=== PATIENT | male | born 1955 | race Asian ===

== ENCOUNTER → 2025-04-15 | Outpatient (CLI) | payer MEDICARE, MEDICAID, SELFPAY ==
--- NOTE | 2025-04-15 10:37 | XR_ITS ---
Examination: Retroperitoneal ultrasound, complete Technique: Multiple high resolution grayscale images of the retroperitoneum obtained, including kidneys and bladder. Exam date and time:April 15, 2025 1041 hours INDICATIONS: Elevated PSA and laboratory examination this month FINDINGS: Right kidney 10.3 cm cortex 1.7 cm 4 mm mid calculus Superior renal cyst 19 mm Left kidney 10.3 cm cortex 1.4 cm 5 mm lower pole calculus, lower pole cyst 18 mm Bilateral mild renal parenchymal scar formation No bladder mass or bladder calculi Bladder prevoid volume 165 cc postvoid volume 15 cc Prostatomegaly, 5.0 x 4.6 x 5.5 cm volume 66 cc, hypervascular in appearance with irregular margins IMPRESSION: Bilateral nonobstructing renal calculi Mild bilateral renal parenchymal scar mentioned Significant prostatomegaly, prostate hypervascular in appearance, recommend follow-up transrectal prostate sonography
== END | disposition home or self-care (01) ==
LOC: SDIM 10:27
PROVIDERS: PCP Nurse Practitioner Family; Referring Provider Nurse Practitioner Family; Visit Provider Nurse Practitioner Family
DX: N20.0 Calculus of kidney (principal); N28.89 Other specified disorders of kidney and ureter; N40.0 Benign prostatic hyperplasia without lower urinary tract symptoms
CPT/HCPCS: 76770

== ENCOUNTER → 2025-05-24 | Outpatient (BNVA) | payer MEDICARE, MEDICAID, SELFPAY | END | disposition home or self-care (01) | PROVIDERS: PCP Nurse Practitioner Family; Referring Provider Nurse Practitioner Family; Visit Provider Urology | DX: N40.1 Benign prostatic hyperplasia with lower urinary tract symptoms (principal); N13.8 Other obstructive and reflux uropathy; R35.0 Frequency of micturition; R97.20 Elevated prostate specific antigen [PSA]; N40.2 Nodular prostate without lower urinary tract symptoms; I12.9 Hypertensive chronic kidney disease with stage 1 through stage 4 chronic kidney disease, or unspecified chronic kidney disease; E11.22 Type 2 diabetes mellitus with diabetic chronic kidney disease; N18.2 Chronic kidney disease, stage 2 (mild); E66.9 Obesity, unspecified; Z68.23 Body mass index [BMI] 23.0-23.9, adult | CPT/HCPCS: 81003; 99202; G0463 ==

== ENCOUNTER → 2025-06-14 | Outpatient (BNVA) | payer MEDICARE, MEDICAID, SELFPAY | END | disposition home or self-care (01) | PROVIDERS: PCP Nurse Practitioner Family; Referring Provider Nurse Practitioner Family; Visit Provider Urology | DX: N41.1 Chronic prostatitis (principal); N41.0 Acute prostatitis; N40.1 Benign prostatic hyperplasia with lower urinary tract symptoms; N13.8 Other obstructive and reflux uropathy | CPT/HCPCS: 55700; 76872; 76942; 81003; 96372; 99214; A4649; J3260; J3490; A9270; G0463 ==